=== PATIENT | female | born 1965 | race Caucasian/White ===

== ENCOUNTER → 2021-01-11 15:39 | Outpatient (CLI) | payer OTHER, SELFPAY ==
[2021-01-11 14:54] VITALS: BMI 53.2
[2021-01-11 17:26] LABS: Vitamin B12 351 pg/mL (211-911); Vitamin D,25 Hydroxy 27.5 ng/mL
[2021-01-11 17:36] LABS: T4 Free Direct 1.28 ng/dL (0.76-1.46); Thyroid Stim Hormone (TSH) 2.49 uIU/mL (0.358-3.74)
[2021-01-14 21:01] LABS: Anti-Thyroglobulin AB < 1.0 IU/mL (0.0-0.9); Thyroglobulin, Serum Qt. 0.1 ng/mL (1.5-38.5)
== END ==
PROVIDERS: PCP Family Medicine; Referring Provider Internal Medicine Endocrinology, Diabetes & Metabolism; Visit Provider Internal Medicine Endocrinology, Diabetes & Metabolism
DX: E89.0 Postprocedural hypothyroidism (principal); E55.9 Vitamin D deficiency, unspecified; C73 Malignant neoplasm of thyroid gland
CPT/HCPCS: 36415; 82306; 82607; 84432; 84439; 84443; 86800

== ENCOUNTER 2022-11-27 15:23 | Emergency (ER) | payer OTHER, SELFPAY ==
[2022-11-27 15:23] VITALS: PULSE 97; RESP 18; TEMP 36.2; O2SAT 98
[2022-11-27 15:25] VITALS: BP 151/67
--- NOTE | 2022-11-27 15:50 | EKG12_ITS ---
Test Reason : Blood Pressure : / mmHG Vent. Rate : 084 BPM Atrial Rate : 084 BPM P-R Int : 146 ms QRS Dur : 082 ms QT Int : 366 ms P-R-T Axes : 049 056 034 degrees QTc Int : 432 ms Normal sinus rhythm Normal ECG Confirmed by EYAD KRAMER, AISSATOU ([id number]), business editor ELKIN KAPADIA ([id number]) on 12/01/2022 10:43:08 A M Referred By: Confirmed By:WENDY CASTANO MD
--- NOTE | 2022-11-27 16:08 | EX.ED.DYSGE1 ---
HPI <MARILUZ Cameron - Last Filed: 11/27/22 17:59> History of Present Illness Chief Complaint: Chest Pain Narrative Narrative: Patient's 57-year-old female history of obesity, diabetes hypothyroidism who presents to the emergency department for 2 days of worsening acid reflux, belching, burning in her throat. Patient states that this began to be significant last evening, she is on Prilosec twice a day. She states that when she laid flat, she felt like she was choking secondary to acid going up to her throat. She was much more concerned about falling asleep and she is here for evaluation. She denies any specific chest pain, radiation to her jaw, arm. She denies any specific shortness of breath on exertion however she states when the acid comes up into her chest she does feel short of breath. She does have pain to the right upper quadrant however this is chronic. [facility] <MARILUZ Cameron - Last Filed: 11/27/22 17:59> [facility] Medical History (Updated 11/27/22 @ 17:58 by MARILUZ Cameron) Arthritis Back problem Blood clot in vein Cancer Chronic cholecystitis with calculus Diabetes Diabetes Gallstones GERD (gastroesophageal reflux disease) h/o uterine ablation High triglycerides Hives HTN (hypertension) with goal to be determined Hyperlipidemia Obesity Pneumonia Postprocedural hypothyroidism Seasonal allergies Thyroid cancer Vitamin deficiency Home Medications omeprazole 20 mg capsule,delayed release 20 mg PO BID 07/28/17 [History Last Taken Unknown] valsartan 160 mg-hydrochlorothiazide 12.5 mg tablet (Diovan HCT) 1 tab PO ONCE 07/28/17 [History Last Taken Unknown] albuterol sulfate 90 mcg/actuation aerosol inhaler gm inhalation 01/11/21 [History Last Taken Unknown] amlodipine 5 mg tablet tablet PO 01/11/21 [History Last Taken Unknown] atorvastatin 40 mg tablet ea PO 01/11/21 [History Last Taken Unknown] dulaglutide 0.75 mg/0.5 mL subcutaneous pen injector ml subcut 01/11/21 [History Last Taken Unknown] levothyroxine 175 mcg tablet 175 mcg PO DAILY 01/11/21 [History Last Taken Unknown] omeprazole 40 mg capsule,delayed release 40 mg PO DAILY 01/11/21 [History Last Taken Unknown] sumatriptan succinate 50 mg tablet ea PO 01/11/21 [History Last Taken Unknown] sucralfate 1 gram tablet (Carafate) 1 g PO TID #30 tabs 11/27/22 [Rx Last Taken Unknown] Allergy/AdvReac Type Severity Reaction Status Date / Time Penicillins Allergy Mild Unknown Verified 01/11/21 14:46 Family History Mother Asthma Breast cancer Hypertension Other Alcohol abuse Diabetes Surgical History H/O colonoscopy H/O knee surgery History of carpal tunnel repair History of thyroidectomy History of toe surgery Social History Smoking Status: Former smoker alcohol intake: current alcohol intake frequency: holidays/special occasions only substance use type: does not use what type of physical activity do you participate in: none EXAM <MARILUZ Cameron - Last Filed: 11/27/22 17:59> Physical Exam Narrative Exam Narrative: Vital signs reviewed. HEET: Head normocephalic atraumatic, TMs clear bilaterally. Posterior pharynx is clear, moist mucous membranes. Nares clear bilaterally. Neck: Supple with no lymphadenopathy or tenderness. No signs of meningismus, negative jolt sign. Cardiac: Regular rate and rhythm no murmurs gallops or rubs, equal peripheral pulses bilaterally. Respiratory: Lungs clear to auscultation bilaterally. No chest tenderness. Abdomen: Soft, nontender, nondistended. No abdominal bruit or pulsatile masses. No hepatosplenomegaly Extremities: No peripheral edema, no signs of gross trauma or deformity. Active full range of motion of all extremities. Neuro: Cranial nerves II through XII intact, no focal neurological deficits. Skin: Clean dry and intact with no rash, purpura, petechiae, vesicles or pustules. Backs/flank: No CVA tenderness, no midline spinal tenderness, no deformity. Psych: Normal mood and affect. No SI, HI or acute psychosis. Const Vital Signs: 11/27/22 15:23 11/27/22 15:25 11/27/22 16:20 Temperature 97.1 F L Temperature Source Temporal Pulse Rate 97 Respiratory Rate 18 Respiratory Effort Normal Non-Labored Respiratory Depth Normal Respiratory Pattern Normal Blood Pressure 151/67 H Blood Pressure Mean 95 Pulse Ox 98 Oxygen Delivery Method Room Air Positive well nourished and well developed General Appearance ED: well developed <Dr. Mike Galeas MD - Last Filed: 11/27/22 16:57> Physical Exam Const Vital Signs: 11/27/22 15:23 11/27/22 15:25 11/27/22 16:20 Temperature 97.1 F L Temperature Source Temporal Pulse Rate 97 Respiratory Rate 18 Respiratory Effort Normal Non-Labored Respiratory Depth Normal Respiratory Pattern Normal Blood Pressure 151/67 H Blood Pressure Mean 95 Pulse Ox 98 Oxygen Delivery Method Room Air MDM <MARILUZ Cameorn - Last Filed: 11/27/22 17:59> MDM Lab Data Labs: Laboratory Results - last 24 hr 11/27/22 11/27/22 11/27/22 16:15 16:15 16:50 WBC 13.8 H RBC 4.96 Hgb 15.0 Hct 46.1 MCV 92.9 MCH 30.2 MCHC 32.5 RDW Std Deviation 45.6 H RDW Coeff of Shazia 13.4 Plt Count 366 MPV 9.6 Immature Gran % (Auto) 0.400 Neut % (Auto) 70.3 H Lymph % (Auto) 21.5 [place] % (Auto) 6.4 Eos % (Auto) 0.8 Baso % (Auto) 0.6 Absolute Neuts (auto) 9.7 H Absolute Lymphs (auto) 2.96 Nucleated RBC % 0 Sodium 133 L Potassium 3.6 Chloride 97 L Carbon Dioxide 26.0 Anion Gap 10 BUN 12 Creatinine 0.74 Est GFR (MDRD) Af Amer 103 Est GFR (MDRD) Non-Af 85 BUN/Creatinine Ratio 16.1 Glucose 106 Calcium 9.3 Total Bilirubin 0.80 AST 14 L ALT 26 Alkaline Phosphatase 135 H Troponin I High Sens 5 Total Protein 7.9 Albumin 3.3 Globulin 4.6 H Albumin/Globulin Ratio 0.7 L Lipase 21 Urine Color Yellow Urine Clarity Clear Urine pH 6.0 Ur Specific [place] 1.015 Urine Protein Negative Urine Glucose (UA) Normal Urine Ketones Negative Urine Occult Blood Negative Urine Nitrite Negative Urine Bilirubin Negative Urine Urobilinogen Normal Ur Leukocyte Esterase Negative Urine RBC 0 SEEN Urine WBC 0 SEEN Ur Squamous Epith Cells 0 SEEN Urine Bacteria 0 SEEN Urine Mucus 0 SEEN Radiography Diagnostic Testing: Clinical Impression(s) from Imaging Studies Chest X-Ray 11/27/22 16:32 IMPRESSION: No radiographic evidence of acute cardiopulmonary disease. Electronically Signed: Davide Rodrigez MD at 16:48 EDT , Treatment and Re-Evaluation :: Patient appears generally well, patient appears nontoxic, vital signs are stable. Patient presents to the emergency department with epigastric pain, acid reflux like symptoms. However secondary to the patient's age, being a female, patient will receive a troponin to ensure this is not cardiac. EKG was unremarkable. Patient will be given IV fluids, IV Zofran, GI cocktail. Patient differential includes GERD, pancreatitis, cardiac abnormality. Patient did have relief of symptoms with GI cocktail. Patient's laboratory values showed a slight leukocytosis with a white blood count of 13.8. Patient's chemistries were unremarkable, troponin was negative. Patient's liver functions was only slightly elevated alkaline phosphatase at 135. Patient urinalysis was negative for any infection. Chest x-ray was negative for any acute process. No evidence of any pneumonia, no evidence of ACS, AK. EKG was unremarkable. At this time, believe this is worsening GERD, the patient was educated regarding not eating late at night, not laying down right after eating. Patient does take prostate twice a day, she will be given a prescription for Carafate as well as told to use Mylanta as needed. She is happy with the plan of care, she will follow-up with her GI. Patient stable for discharge. <Dr. Mike Galeas MD - Last Filed: 11/27/22 16:57> [facility] Narrative Medical decision making narrative: I have personally performed a face to face assessment of the patient and have reviewed the CLEO Note. I performed a substantive portion of the visit including all aspects of the following. My avitia findings include: History: Patient states for the last 2 3 days she has been having increased reflux. She feels some burning in her chest. Sometimes at night she will wake up and she feels short of breath is gasping and cannot speak. This resolves after a few minutes. She can taste which she describes as old Doritos smell in her mouth. She gets some epigastric discomfort but most of it is the throat and mid chest. No diaphoresis. She has been drinking some orange juice recently which is a slight diet change. She has known history of GERD and is on omeprazole twice a day. Exam: Awake alert no acute distress. Oropharynx is normal. Lungs are clear. Heart is regular. No murmur gallop or rub. Peripheral pulses are equal and normal. There is really no abdominal tenderness. I am not really even getting epigastric tenderness or right upper quadrant tenderness. Patient does states she has had gallbladder problems but is not having pain in that area. Medical Decision Making: Patient's symptoms sound very much like worsening acid reflux. But with her age and risk factors we will pursue cardiac evaluation in addition to abdominal labs. As long as these show no acute process I think she can go home and we will increase her therapy and discussed some dietary changes. She understands that weight loss would be beneficial for her. Lab Data Labs: Laboratory Results - last 24 hr 11/27/22 11/27/22 11/27/22 16:15 16:15 16:50 WBC 13.8 H RBC 4.96 Hgb 15.0 Hct 46.1 MCV 92.9 MCH 30.2 MCHC 32.5 RDW Std Deviation 45.6 H RDW Coeff of Shazia 13.4 Plt Count 366 MPV 9.6 Immature Gran % (Auto) 0.400 Neut % (Auto) 70.3 H Lymph % (Auto) 21.5 [place] % (Auto) 6.4 Eos % (Auto) 0.8 Baso % (Auto) 0.6 Absolute Neuts (auto) 9.7 H Absolute Lymphs (auto) 2.96 Nucleated RBC % 0 Sodium 133 L Potassium 3.6 Chloride 97 L Carbon Dioxide 26.0 Anion Gap 10 BUN 12 Creatinine 0.74 Est GFR (MDRD) Af Amer 103 Est GFR (MDRD) Non-Af 85 BUN/Creatinine Ratio 16.1 Glucose 106 Calcium 9.3 Total Bilirubin 0.80 AST 14 L ALT 26 Alkaline Phosphatase 135 H Troponin I High Sens 5 Total Protein 7.9 Albumin 3.3 Globulin 4.6 H Albumin/Globulin Ratio 0.7 L Lipase 21 Urine Color Yellow Urine Clarity Clear Urine pH 6.0 Ur Specific [place] 1.015 Urine Protein Negative Urine Glucose (UA) Normal Urine Ketones Negative Urine Occult Blood Negative Urine Nitrite Negative Urine Bilirubin Negative Urine Urobilinogen Normal Ur Leukocyte Esterase Negative Urine RBC 0 SEEN Urine WBC 0 SEEN Ur Squamous Epith Cells 0 SEEN Urine Bacteria 0 SEEN Urine Mucus 0 SEEN Radiography Diagnostic Testing: Clinical Impression(s) from Imaging Studies Chest X-Ray 11/27/22 16:32 IMPRESSION: No radiographic evidence of acute cardiopulmonary disease. Electronically Signed: Davide Rodrigez MD at 16:48 EDT Reading Location ID and State: [facility] / [place] Tel , Service support , Discharge Plan Triage Chief Complaint: Chest Pain Other Complaint: Abd Pain Shortness of Breath ED Midlevel Provider: Davide Connolly ED Provider: Mike Galeas Dx/Rx/DC Orders Clinical Impression: Gastroesophageal reflux disease Instructions: GERD Dc, ED GERD (Adult) Prescriptions: New sucralfate [Carafate] 1 gram tablet 1 g PO TID Qty: 30 0RF No Action omeprazole 20 mg capsule,delayed release(DR/EC) 20 mg PO BID valsartan-hydrochlorothiazide [Diovan HCT] 160-12.5 mg tablet 1 tab PO ONCE Trulicity 0.75 mg/0.5 mL pen injector subcut amlodipine 5 mg tablet PO omeprazole 40 mg capsule,delayed release(DR/EC) 40 mg PO DAILY atorvastatin 40 mg tablet PO Label Comments: TAKE 1 TABLET BY MOUTH ONCE DAILY. FOR CHOLESTEROL. levothyroxine 175 mcg tablet 175 mcg PO DAILY sumatriptan succinate 50 mg tablet PO Label Comments: take 1 tablet by mouth AT ONSET OF HEADACHE and may repeat after 2 hours if needed albuterol sulfate 90 mcg/actuation HFA aerosol inhaler inhalation Label Comments: INHALE 2 PUFFS INSTRUCTED EVERY 6 HOURS NEEDED FOR WHEEZING/SHORTNESS OF BREATH. Primary Care Provider: Daniela Richardson Referrals: Daniela Richardson PA [Primary Care Provider] - Activity Restrictions/Additional Instructions: Please follow-up with your GI specialist for a repeat scope. Please follow-up outpatient. Disposition Disposition: Home, Self Care
[2022-11-27] MEDS: Ondansetron 4 MG/2 ML Vial IV (16:14)
[2022-11-27 16:26] LABS: Absolute Lymphocyte Count 2.96 X10^3/uL (0.83-4.51); Absolute Neutrophil Count 9.7 X10^3/uL (2.0-7.7); Basophil# 0.08 X10^3/uL; Basophil% 0.6 % (0-1); Eosinophil# 0.11 X10^3/uL; Eosinophils% 0.8 % (0-5); Hematocrit 46.1 % (37-47); Lymphocyte # 2.96 X10^3/ul (0.83-4.51); Lymphocyte % 21.5 % (19-41); Mean Corp Hgb Conc 32.5 g/dL (32-36); Mean Corpuscular Hgb 30.2 pg (27.0-32.0); Mean Corpuscular Volume 92.9 fL (81-99); Mean Platelet Vol. 9.6 fl (6.2-12.0); Monocyte# 0.88 X10^3/uL; Monocyte% 6.4 % (0-10); NRBC Flagged by Analyzer 0 % (0-5); Neutrophil # 9.68 X10^3/uL (2.7-7.7); Neutrophil % 70.3 % (47-70); Platelet Count 366 K/mm3 (150-450); RBC Distribution Width CV 13.4 % (11.6-14.6); RBC Distribution Width SD 45.6 fl (35.1-43.9); Red Blood Count 4.96 M/mm3 (4.2-5.4); White Blood Count 13.8 K/mm3 (4.4-11.0)
--- NOTE | 2022-11-27 16:32 | RAD_ITS ---
INDICATION: Cough EXAMINATION/TECHNIQUE: X-RAY - XR Chest 1 View COMPARISON: None FINDINGS: LINES/DEVICES: None. LUNGS: No consolidation, edema or effusion. No pneumothorax. MEDIASTINUM AND CARDIOVASCULAR STRUCTURES: Cardiac silhouette not enlarged. Central airways and mediastinal contour are unremarkable. RAD/Chest 1 View (Portable) IMPRESSION: No radiographic evidence of acute cardiopulmonary disease. Electronically Signed: Davide Rodrigez MD at 16:48 EDT ,
[2022-11-27] MEDS: Mag Hydrox/Al Hydrox/Simeth 30 ML UDC PO (16:36)
[2022-11-27 16:43] LABS: ALB/GLOB Ratio 0.7 RATIO (0.9-2.4); AST(SGOT) 14 U/L (15-37); Alanine Aminotransfer ALT/SGPT 26 U/L (13-56); Albumin, Serum 3.3 g/dL (3.2-5.0); Alkaline Phosphatase 135 U/L (45-117); Anion Gap 10 (5-15); BUN 12 mg/dL (7-18); BUN/Creat Ratio 16.1 RATIO (10-20); Calcium,Total 9.3 mg/dL (8.5-10.1); Chloride 97 mmol/L (98-107); Creatinine, Serum 0.74 mg/dL (0.55-1.02); EST Glomerular Filtration Rate 85 mL/min (>60); Est Glom Filt Rate - Afr Amer 103 mL/min (>60); Globulin 4.6 g/dL (2.2-4.2); Glucose 106 mg/dL (74-106); Lipase 21 U/L (13-75); Potassium 3.6 mmol/L (3.5-5.1); Protein, Total 7.9 g/dL (6.4-8.2); Sodium Level 133 mmol/L (136-145); Troponin-I HS 5 pg/mL (3.0-54.0)
[2022-11-27 16:57] LABS: Bacteria 0 SEEN /hpf (None Seen); Mucous, Urine 0 SEEN /hpf (<or=2+); Red Blood Cells-Urine 0 SEEN /hpf (0-5); Squamous Epithelial Cells - UA 0 SEEN /hpf (5-10); White Blood Cells 0 SEEN /hpf (0-5)
[2022-11-27 17:01] LABS: Color, Urine Yellow (Yellow); Glucose, Dipstick Normal (Normal); Ketone-Dipstick Negative (Negative); Leukocyte Esterase-Dipstick Negative /ul (Negative); Nitrite-Dipstick Negative (Negative); Occult Blood-Urine Negative /ul (Negative); Protein-Dipstick Negative (Negative); Specific Gravity, Urine 1.015 (1.002-1.030); Urine Bilirubin Dipstick Negative (Negative); Urine Clarity Clear (Clear); Urine Urobilinogen Normal (Normal)
[2022-11-27 17:23] VITALS: RESP 18
== END 2022-11-27 18:18 | disposition home or self-care (01) ==
PROVIDERS: Nurse Practitioner; Emergency Provider Emergency Medicine; PCP Physician Assistant; Visit Provider Emergency Medicine
DX: K21.9 Gastro-esophageal reflux disease without esophagitis (principal); E66.9 Obesity, unspecified; Z87.891 Personal history of nicotine dependence
CPT/HCPCS: 71045; 80053; 81001; 83690; 84484; 85025; 93005; 96374; 99284; A4216; J2405